=== PATIENT | male | born 1960 ===

== ENCOUNTER 2025-05-23 07:25 | Outpatient (CLI) | payer OTHER | END 2025-05-23 07:28 | disposition home or self-care (01) | LOC: MRI 07:25 | PROVIDERS: ATTEND Orthopaedic Surgery | DX: M54.2 Cervicalgia (principal); M25.512 Pain in left shoulder; M75.122 Complete rotator cuff tear or rupture of left shoulder, not specified as traumatic | CPT/HCPCS: 72141; 73218 ==